=== PATIENT | female | born 1975 | race Caucasian/White ===

== ENCOUNTER 2022-12-12 19:42 | Outpatient (CLI) | payer BC, SELFPAY ==
--- NOTE | 2022-12-19 08:41 | W.PM.SLEEP ---
Sleep Study Details Details Interpreting Provider: Suleiman Date of Sleep Study: 12/12/22 Sleep Study Details: STUDY TYPE:? Home unattended ? BMI:? 41.1 ORDERING PROVIDER:Kalyan Bearden INDICATION:? Concerns about sleep apnea ? SLEEP SUMMARY:? 554.5 minutes monitored RESPIRATORY SUMMARY:? AHI 0.9, supine 2.9, left lateral 0.8, right lateral 0 Low oxygen 92 Snoring 1.5% PERIODIC LIMB MOVEMENTS OF SLEEP:? Not recorded during home study CARDIAC:? Range 48-101, mean 62.2 IMPRESSION:? This study does not demonstrate clinically significant obstructive sleep apnea. If sleep disorder is strongly suspected would recommend an in-lab study RECOMMENDATION: See impression
== END 2022-12-12 19:43 | disposition home or self-care (01) ==
LOC: SLEEP 19:43
PROVIDERS: Visit Provider Otolaryngology
DX: G47.30 Sleep apnea, unspecified (principal); G47.10 Hypersomnia, unspecified; R06.83 Snoring
CPT/HCPCS: 95806

== ENCOUNTER 2022-12-14 08:38 | Outpatient (CLI) | payer BC, SELFPAY | END 2022-12-14 08:39 | disposition home or self-care (01) | PROVIDERS: Visit Provider Physician Assistant | DX: Z01.419 Encounter for gynecological examination (general) (routine) without abnormal findings (principal); E66.9 Obesity, unspecified; Z13.6 Encounter for screening for cardiovascular disorders; Z13.1 Encounter for screening for diabetes mellitus; Z13.9 Encounter for screening, unspecified | CPT/HCPCS: 80061; 82728; 82947 ==

== ENCOUNTER 2022-12-26 09:08 | Outpatient (CLI) | payer BC, SELFPAY ==
--- NOTE | 2022-12-26 09:15 | CRLHL7_ITS ---
For Patients: As a result of the Century Cures Act, medical imaging exams and procedure reports are released immediately into your electronic medical record. You may view this report before your referring provider. If you have questions, please contact your health care provider. BILATERAL SCREENING MAMMOGRAM WITH COMPUTER-AIDED DETECTION AND TOMOSYNTHESIS TECHNIQUE: CC and MLO views were obtained. These mammographic images have been obtained using full-field digital technique. These mammographic images were interpreted with the benefit of computer-aided detection. Breast Tomosynthesis was used in this interpretation. COMPARISON FILM: 08/16/21. FINDINGS: The breasts are heterogeneously dense, which may obscure small masses IMPRESSION: There is no radiographic evidence for malignancy. ASSESSMENT: BI-RADS Category 2: Benign RECOMMENDATION: Routine screening mammogram in 1 year. A lay language report of this examination will be provided to the patient. Cory Ryan M.D. Diagnostic Radiologist [email or web address] SRINIVASAN/Dictated by: Cory Ryan MD @ 12/27/2022 1:00:00 PM (Electronically Signed)
== END 2022-12-26 09:09 | disposition home or self-care (01) ==
PROVIDERS: Visit Provider Physician Assistant
DX: Z12.31 Encounter for screening mammogram for malignant neoplasm of breast (principal); R92.2 Inconclusive mammogram
CPT/HCPCS: 77063; 77067

== ENCOUNTER 2023-03-07 20:09 | Outpatient (CLI) | payer BC, SELFPAY ==
--- NOTE | 2023-03-13 11:07 | W.PM.SLEEP ---
Sleep Study Details Details Interpreting Provider: Maxi Date of Sleep Study: 03/07/23 Sleep Study Details: STUDY TYPE:? Hospital polysomnogram ? BMI:? 41.6 ORDERING PROVIDER:? Maxi INDICATION:? Concerns about sleep apnea ? SLEEP SUMMARY:? 449.5 minutes total sleep time, arousal index 7.5 RESPIRATORY SUMMARY:? Mean oxygen awake 96 asleep 96 minimum 85, 0.2 minutes oxygen between 80 and 88% AHI 2.1, RDI 5.2, REM AHI 12.4. Note that the entire study was done in the lateral position PERIODIC LIMB MOVEMENTS OF SLEEP:? Index 63.4, index with arousal 0.4 CARDIAC:? Awake 82 asleep 76 no arrhythmias noted IMPRESSION:? Possible seizure activity noted. Very mild obstructive sleep apnea. The overall AHI is within normal limits but the RDI is 5.2 and the REM AHI is 12.4. RECOMMENDATION: Neurology referral for possible nocturnal seizure activity Would recommend initiate CPAP AutoSet pressure 4-17. Other considerations would for treatment of the sleep apnea would be weight loss, airway expansion surgery and/or dental appliance.
== END 2023-03-07 20:10 | disposition home or self-care (01) ==
PROVIDERS: PCP Otolaryngology; Visit Provider Otolaryngology
DX: G47.33 Obstructive sleep apnea (adult) (pediatric) (principal)
CPT/HCPCS: 95810